=== PATIENT | female | born 1960 | race Caucasian/White ===

== ENCOUNTER → 2023-08-07 13:52 | Outpatient (REF) | payer BC, SELFPAY | LOC: HWWDC 13:52 | PROVIDERS: ATTENDING PHYSICIAN Student in an Organized Health Care Education/Training Program; FAMILY PHYSICIAN Family Medicine | DX: Z12.31 Encounter for screening mammogram for malignant neoplasm of breast (principal) | CPT/HCPCS: 77063; 77067 ==